=== PATIENT | female | born 1950 | race Caucasian/White ===

== ENCOUNTER → 2016-08-06 | Outpatient (CLI) | payer BC, OTHER ==
[~2016-08-06] MED LIST: ACYC1CAP8 PO; ALUMCHW6 PO; AMLO5TAB2 PO; CLOT10TR2 MT; DOCU100C31 PO; FLUT0.15 NAE; GABA1CAP4 PO; MAGIC1 PO; METO25TA56 PO; OXYC-57 PO; POSA1TAB PO; POTA10TA PO; PRT/20 PO; TPRSR/50 PO; TRMO2580 TOP; ULT50X PO; VALA1TAB31 PO; VNTHFA/IN INH; ZFR/8 PO
== END | disposition home or self-care (01) ==
LOC: C.PAPS 15:16
PROVIDERS: ATTEND Obstetrics & Gynecology
DX: Z01.419 Encounter for gynecological examination (general) (routine) without abnormal findings (principal)

== ENCOUNTER 2017-02-19 14:36 | Emergency (ER) | payer BC, OTHER ==
[~2017-02-19 14:36] MED LIST changes: -GABA1CAP4 PO; -OXYC-57 PO; -TPRSR/50 PO; -VALA1TAB31 PO
[2017-02-19 14:39] VITALS: TEMP 36.8; Ht 154.9 cm
[2017-02-19] MEDS ORDERED: TPRSR/50 PO (15:51)
[2017-02-19] MEDS ORDERED: GABA1CAP4 PO (15:51)
--- NOTE | 2017-02-19 15:58 | EMERGENCY ROOM VISIT NOTE ---
History Report prepared by Tushar: Jameson Fan Under the Supervision of: Dr. Niko Avalos M.D. First contact with patient: 15:37 Chief Complaint: RASH Stated Complaint: LEUKEMIA IN REMISSION/HAS SHINGLES, NEW RASH TODAY History of Present Illness The patient is a 66 year old female with a history of leukemia who presents to the Emergency Room with complaints of a persistent rash that started yesterday. She says that she recently had shingles on her groin and back, and was seen by her doctor at [facility], and was put on Valtrex 1000 mg 3 times per day. The patient states that today is her last dose of the Valtrex. She notes that yesterday, she started getting a new rash on her buttocks. She says that she does not feel well, and called her doctor at [facility], and was told to come here for evaluation. The patient denies any fevers, nausea, vomiting, abdominal pain, cough, or urinary symptoms. Source of History: patient, spouse/significant other Onset: Yesterday Position: buttock Quality: other (rash) Timing: other (persistent) Associated Symptoms: No fevers, No cough, No nausea, No vomiting, No abdominal pain, No urinary symptoms Note: Associated symptoms: Recently has been treated for shingles on her groin and back. Review of Systems See HPI for pertinent positives & negatives. A total of 10 systems reviewed and were otherwise negative. Past Medical & Surgical Medical Problems: (1) Asthma (2) Hematuria (3) Hypertension (4) Leukemia (5) Vomiting Old medical records were reviewed. Nurse's notes were reviewed and I agree with. Family History Patient reports no known family medical history. Social History Smoking Status: Never Smoker Drug Use: none Marital Status: Housing Status: lives with family Occupation Status: employed Current/Historical Medications Scheduled Gabapentin (Gabapentin), 300 MG PO TID Metoprolol Succinate (Metoprolol Succinate ER), 50 MG PO BID Pantoprazole (Protonix), 20 MG PO DAILY Valacyclovir Hcl (Valtrex), 1 GM PO TID Scheduled PRN Albuterol Hfa (Ventolin Hfa), 2 PUFFS INH QID PRN for Wheezing Docusate Sodium (Docusate Sodium), 1 CAP PO DAILY PRN for constipation Fluticasone Propionate (Nasal) (Flonase Allergy Relief), 1 SPRAY MANISHA DAILY PRN for CONGESTION Oxycodone/Acetaminophen 5MG/325MG (Percocet 5MG/325MG), 1 TABLET PO Q4H PRN for Pain Tramadol HCl (Tramadol HCl), 50 MG PO Q8 PRN for Pain Allergies Coded Allergies: Sulfa Antibiotics (Verified Allergy, Severe, RASH, 02/19/17) Physical Exam Vital Signs Date Time Temp Pulse Resp B/P (MAP) Pulse Ox O2 Delivery O2 Flow Rate FiO2 02/19/17 17:11 60 20 152/77 97 Room Air 02/19/17 14:39 36.8 65 18 147/78 95 Room Air Physical Exam General: Well developed well nourished non ill-appearing older female in no acute distress, breathing comfortably on room air. Normal speech HEENT: Normal cephalic atraumatic. Pupils are equal round and reactive to light. Extraocular movements are intact. Oropharynx is pink with moist mucous membranes. No swelling of the mouth lips or tongue. Neck: Supple with a midline trachea. No meningeal signs or stiffness, no JVD or bruits. No Stridor. Chest: Clear to auscultation bilaterally. No wheezes or rhonchi. No increased work of breathing. Heart: regular rate and rhythm. Abdomen: Soft nontender, nondistended without rebound guarding or rigidity. Extremities: No cyanosis clubbing or edema. No calf tenderness or assymetry Spine/Back. Non tender to palpation. No CVA tenderness Skin: Healing rash on left buttocks. Small superficial ulcer centrally, laterally on buttocks there are small areas that are red, scaly, and lacy. They alisia. No pustules. No lesions on abdomen or chest. Neurologic exam: Cranial nerves two through 12 are intact. Motor and sensation are intact and symmetrical throughout. Medical Decision & Procedures Laboratory Results 02/19/17 16:16 Red Blood Count 4.55, Mean Corpuscular Volume 90.1, Mean Corpuscular Hemoglobin 28.6, Mean Corpuscular Hemoglobin Concent 31.7, Mean Platelet Volume 8.4, Neutrophils (%) (Auto) 51.3, Lymphocytes (%) (Auto) 32.8, Monocytes (%) (Auto) 8.5, Eosinophils (%) (Auto) 6.4, Basophils (%) (Auto) 0.8, Neutrophils # (Auto) 3.13, Lymphocytes # (Auto) 2.00, Monocytes # (Auto) 0.52, Eosinophils # (Auto) 0.39, Basophils # (Auto) 0.05 02/19/17 16:16 Test 02/19/17 16:16 White Blood Count 6.10 K/uL (4.8-10.8) Red Blood Count 4.55 M/uL (4.2-5.4) Hemoglobin 13.0 g/dL (12.0-16.0) Hematocrit 41.0 % (37-47) Mean Corpuscular Volume 90.1 fL (80-100) Mean Corpuscular Hemoglobin 28.6 pg (25-34) Mean Corpuscular Hemoglobin Concent 31.7 g/dl (32-36) Platelet Count 251 K/uL (130-400) Mean Platelet Volume 8.4 fL (7.4-10.4) Neutrophils (%) (Auto) 51.3 % Lymphocytes (%) (Auto) 32.8 % Monocytes (%) (Auto) 8.5 % Eosinophils (%) (Auto) 6.4 % Basophils (%) (Auto) 0.8 % Neutrophils # (Auto) 3.13 K/uL (1.4-6.5) Lymphocytes # (Auto) 2.00 K/uL (1.2-3.4) Monocytes # (Auto) 0.52 K/uL (0.11-0.59) Eosinophils # (Auto) 0.39 K/uL (0-0.5) Basophils # (Auto) 0.05 K/uL (0-0.2) RDW Standard Deviation 53.3 fL (36.4-46.3) RDW Coefficient of Variation 16.2 % (11.5-14.5) Immature Granulocyte % (Auto) 0.2 % Immature Granulocyte # (Auto) 0.01 K/uL (0.00-0.02) Anion Gap 7.0 mmol/L (3-11) Estimated GFR () 49.5 Estimated GFR (Non- 42.7 BUN/Creatinine Ratio 15.7 (10-20) Calcium Level 9.3 mg/dl (8.5-10.1) Total Bilirubin 0.1 mg/dl (0.2-1) Direct Bilirubin < 0.1 mg/dl (0-0.2) Aspartate Amino Transf (AST/SGOT) 18 U/L (15-37) Alanine Aminotransferase (ALT/SGPT) 22 U/L (12-78) Alkaline Phosphatase 90 U/L (45-117) Total Protein 7.2 gm/dl (6.4-8.2) Albumin 3.3 gm/dl (3.4-5.0) Lipase 125 U/L (73-393) Laboratory studies as stated above per my review. ED Course 1539: Past medical records reviewed. The patient was evaluated in room B3B, and a complete history and physical examination were performed. 1705: I discussed the patient with Dr. Mateo Middleton oncology. 1714: Upon reevaluation, the patient is resting. I discussed the results and treatment plan with her. She verbalized agreement of the treatment plan. The patient was discharged home. Medical Decision Differentials include but are not limited to: shingles, rash, infection, complication from bone marrow transplant, hematologic problem. This patient comes in as described above. She was placed in room B3. She is here for treatment and evaluation of rash in her buttocks area. She's been treated for shingles and says is different rash. On exam, the shingles have more or less resolved. She has a small ulcer superficially in her buttocks which more looks like a pressure sore. There is no redness or cellulitis that the rash in question is lateral to that on the buttocks. It is red and Luz Elena and only small it may be more an irritation. It does not look like shingles and it is not vasculitic appearing. She is asymptomatic otherwise and has no fever. There is no petechiae. Was unremarkable she has no fever or white count. She isn't normal platelet function she is normal kidney and liver function and no electrolyte abnormalities. I did discuss the case with the [facility] oncologist and he will arrange for her to be seen by a team assembler down there this week. There are multiple things this rash could be including [id number] disease. At this point, there is nothing to suggest that she needs to be acutely hospitalized. She was encouraged to return if: she has fever or increasing pain, worsening symptoms, any new problems or concerns and follow up closely with [facility] and they will call her tomorrow. Medication Reconcilliation Current Medication List: was personally reviewed by me Blood Pressure Screening Patient's blood pressure: Elevated blood pressure Blood pressure disposition: Elevated BP felt to be situational Consults Time Called: 1700 Consulting Physician: Dr. Mateo Middleton oncology Returned Call: 1705 I discussed the patient with Dr. Mateo Middleton oncology. Impression Primary Impression: Rash Scribe Attestation The scribe's documentation has been prepared under my direction and personally reviewed by me in its entirety. I confirm that the note above accurately reflects all work, treatment, procedures, and medical decision making performed by me. Departure Information Dispostion Home / Self-Care Referrals Sherry Blanc M.D. (PCP) Patient Instructions My [facility] Additional Instructions Rest Follow-up with [facility], they will call you tommorrow and arrange close follow- up with Dermatology Return if: fever, worsening of symptoms, increasing pain or problems, any new concerns
[2017-02-19] MEDS ORDERED: OXYC-57 PO (15:59)
[2017-02-19] MEDS ORDERED: VALA1TAB31 PO (15:59)
[2017-02-19 16:32] LABS: BASO % 0.8 %; BASO ABS # 0.05 K/uL (0-0.2); COMPLETE YES; EOS % 6.4 %; IG% 0.2 %; LYMPH % 32.8 %; MEAN CELL VOLUME 90.1 fL (80-100); MEAN CORPUSCULAR HEMOGLOBIN 28.6 pg (25-34); MEAN CORPUSCULAR HGB CONC 31.7 g/dl (32-36); MEAN PLATELET VOLUME 8.4 fL (7.4-10.4); MONO % 8.5 %; NEUT % 51.3 %; PLATELET COUNT 251 K/uL (130-400); RED BLOOD COUNT 4.55 M/uL (4.2-5.4)
[2017-02-19 16:50] LABS: ALT/SGPT 22 U/L (12-78); BLOOD UREA NITROGEN 20 mg/dl (7-18); BUN/CREATININE RATIO 15.7 (10-20); CALCIUM 9.3 mg/dl (8.5-10.1); CARBON DIOXIDE 27 mmol/L (21-32); CHLORIDE 106 mmol/L (98-107); GLUCOSE 92 mg/dl (70-99); POTASSIUM 4.1 mmol/L (3.5-5.1); SODIUM 140 mmol/L (136-145)
[2017-02-19 16:53] LABS: ALKALINE PHOSPHATASE 90 U/L (45-117); AST/SGOT 18 U/L (15-37)
[2017-02-19 17:11] VITALS: BP 152/77; PULSE 60; O2SAT 97
== END 2017-02-19 17:44 | disposition home or self-care (01) ==
LOC: C.EDB 14:37
DX: R21 Rash and other nonspecific skin eruption (principal); J45.909 Unspecified asthma, uncomplicated; I10 Essential (primary) hypertension; Z85.6 Personal history of leukemia; Z79.899 Other long term (current) drug therapy

== ENCOUNTER → 2017-03-05 | Outpatient (CLI) | payer BC ==
[~2017-03-05] MED LIST changes: -ACYC1CAP8 PO; -ALUMCHW6 PO; -AMLO5TAB2 PO; -CLOT10TR2 MT; +GABA1CAP4 PO; -MAGIC1 PO; -METO25TA56 PO; +OXYC-57 PO; -POSA1TAB PO; -POTA10TA PO; +TPRSR/50 PO; -TRMO2580 TOP; +VALA1TAB31 PO; -ZFR/8 PO
== END | disposition home or self-care (01) ==
LOC: C.LABSPEC 13:58
PROVIDERS: ATTEND Obstetrics & Gynecology
DX: N76.2 Acute vulvitis (principal)

== ENCOUNTER → 2017-07-19 | Outpatient (CLI) | payer BC ==
--- NOTE | 2017-07-19 11:03 | DIAGNOSTIC IMAGING REPORT ---
ABDOMINAL ULTRASOUND COMPLETE HISTORY: Right upper quadrant abdominal pain.. COMPARISON: Abdominal ultrasound 02/12/2006 and abdomen and pelvis CT 11/21/2005. FINDINGS: Pancreas: The pancreatic tail is obscured by overlying bowel gas. The remaining portions of the pancreas are within normal limits. Liver: The liver is echogenic consistent with fatty change. There is a 2.3 x 2.1 0.9 cm hypoechoic area at the left hepatic lobe. This favors focal fatty sparing. There is vascular flow seen through this area. Gallbladder: The gallbladder is surgically absent. CBD: 6 mm. Kidneys: No hydronephrosis. The right measures 10.3 cm and the left measures 11.0 cm. Spleen: 10.3 cm. No splenic masses. Aorta: Proximal and mid abdominal aorta are normal in caliber. The distal aorta is obscured by overlying bowel gas. IVC: Patent. IMPRESSION: 1. Cholecystectomy. 2. Hepatic steatosis. A 2.9 cm hypoechoic area within the left hepatic lobe anteriorly. This favors focal fatty sparing. A hepatic lesion could also have a similar appearance but is considered less likely. Follow-up abdominal ultrasound in 3 months is recommended for further evaluation. Electronically signed by: Jovon Ramirez M.D. 07/19/2017 11:02 AM Dictated Date/Time: 07/19/2017 10:54 AM
== END | disposition home or self-care (01) ==
LOC: C.ULTR 10:01
PROVIDERS: ATTEND Internal Medicine Hematology & Oncology
DX: C92.51 Acute myelomonocytic leukemia, in remission (principal)

== ENCOUNTER → 2017-10-07 | Outpatient (CLI) | payer BC ==
[~2017-10-07] MED LIST changes: +GABA-1219 PO; -GABA1CAP4 PO
--- NOTE | 2017-10-07 20:54 | DIAGNOSTIC IMAGING REPORT ---
MRCP HISTORY: Right upper quadrant pain. TECHNIQUE: MRCP of the abdomen was performed according to standard departmental protocol without the use of intravenous contrast. COMPARISON STUDY: Abdominal ultrasound 07/19/2017. Abdomen and pelvis CT 11/21/2005. FINDINGS: Normal caliber common bile duct measuring 6 mm. No filling defects within the common bile duct. No intrahepatic bile duct dilatation. There may be a mild focal stricture of the distal main pancreatic duct as well as of the proximal to mid main pancreatic duct at the pancreatic tail. There is a T1 and centimeters slightly T2 hyperintense focus seen within the left hepatic lobe anteriorly. This is indeterminate but stable compared to the recent abdominal ultrasound. The spleen, adrenal glands, left kidney are unremarkable. There are 2 small T2 hyperintense lesions within the lower pole the right kidney with the largest measuring 8 mm. These likely represent small cysts. IMPRESSION: 1. Normal caliber common bile duct. No filling defects within the common bile duct. 2. Mild focal stricture seen within the proximal to mid and distal main pancreatic duct. The remaining portions of the main pancreatic duct are normal in caliber. 3. Cholecystectomy. 4. A 2.9 cm slightly T2 hyperintense lesion within the left hepatic lobe. This is indeterminate. Consider follow-up nonemergent dedicated liver MRI for further evaluation. Electronically signed by: Jovon Ramirez M.D. 10/07/2017 8:52 PM Dictated Date/Time: 10/07/2017 8:41 PM
== END | disposition home or self-care (01) ==
LOC: C.MRI 19:26
PROVIDERS: ATTEND Internal Medicine Gastroenterology
DX: R10.11 Right upper quadrant pain (principal); K76.9 Liver disease, unspecified; Z90.49 Acquired absence of other specified parts of digestive tract

== ENCOUNTER → 2017-10-15 | Outpatient (CLI) | payer BC ==
--- NOTE | 2017-10-15 12:06 | DIAGNOSTIC IMAGING REPORT ---
ULTRASOUND ABDOMEN COMPLETE CLINICAL HISTORY: AML. COMPARISON STUDY: Abdominal CT dated 11/21/2005. Abdominal ultrasound dated 07/19/2017. TECHNIQUE: Real-time, grayscale, and color flow sonography of the abdomen was performed. Images are reviewed in the transverse and longitudinal planes. FINDINGS: Liver: The liver is enlarged and demonstrates heterogeneously increased echotexture consistent with hepatic steatosis. There is no intrahepatic biliary ductal dilatation. The main portal vein is patent. A 2.3 cm hypoechoic structure in the anterior left lobe is similar to previous. Gallbladder: The gallbladder is surgically absent. The common bile duct measures up to 0.6 cm in diameter. Pancreas: Visualized portions of the pancreatic head and body are normal in appearance. Spleen: The spleen is normal in size and echotexture, measuring 9.0 cm in length. Kidneys: The kidneys are normal in size and echotexture. There is no hydronephrosis. The right kidney measures 9.2 cm in length and the left kidney measures 10.8 cm in length. No shadowing calculi are identified. Abdominal vasculature: Abdominal aorta and IVC were not visualized due to overlying bowel gas. Ascites: None. IMPRESSION: 1. There is evidence of hepatic steatosis. 2. A 2.5 cm hypoechoic focus in the left lobe is unchanged and remains nonspecific, possibly representing fatty sparing. This may have also been present dating back to 2005. If definitive characterization is desired then MRI of the liver would be required. 3. Status post cholecystectomy. Electronically signed by: Wesly Inman M.D. 10/15/2017 12:05 PM Dictated Date/Time: 10/15/2017 12:01 PM
== END | disposition home or self-care (01) ==
LOC: C.ULTR 11:37
PROVIDERS: ATTEND Internal Medicine Hematology & Oncology
DX: C92.51 Acute myelomonocytic leukemia, in remission (principal)

== ENCOUNTER 2019-03-05 21:02 | Observation (INO) ==
[2019-03-05] MEDS ORDERED: ONDANSETRON INJ 2 MG/ML 2 ML VIAL IV STA (21:17)
[2019-03-05] MEDS ORDERED: SODIUM CHLORIDE 0.9% 1000ML 1,000 ML IV ONE (21:17)
[2019-03-05] MEDS ORDERED: KETOROLAC TROMETHAMINE 15 MG/ML VIAL IV STA (21:17)
[2019-03-05] MEDS: HYDROmorphone INJ 0.5 MG/0.5 ML SYR IV PRN (21:57)
[2019-03-05 22:04] LABS: Basophils # (auto) 0.03 K/uL (0-0.2); Basophils % (auto) 0.1 %; Eosinophils # (auto) 0.01 K/uL (0-0.5); Hematocrit (blood only) 48.2 % (37-47); Hemoglobin 16.4 g/dL (12.0-16.0); Immature Granulocytes # (auto) 0.09 K/uL (0.00-0.02); Immature Granulocytes % (auto) 0.4 %; Lymphocytes # (auto) 1.51 K/uL (1.2-3.4); Lymphocytes % (auto) 7.2 %; Mean Corpuscular Hemoglobin 31.3 pg (25-34); Monocytes # (auto) 1.02 K/uL (0.11-0.59); Monocytes % (auto) 4.9 %; Neutrophils # (auto) 18.22 K/uL (1.4-6.5); Neutrophils % (auto) 87.4 %; Platelet Count 304 K/uL (130-400); RDW Coefficient of Variation 14.4 % (11.5-14.5); RDW Standard Deviation 48.2 fL (36.4-46.3); Red Blood Count 5.24 M/uL (4.2-5.4); White Blood Count 20.88 K/uL (4.8-10.8)
[2019-03-05 22:22] LABS: Albumin Level 4.1 gm/dl (3.4-5.0); BUN Creatinine Ratio 14.6 (10-20); Calcium 9.6 mg/dl (8.5-10.1); Est GFR (African American) 47.1; Est GFR (Non-African American) 40.6; Potassium 3.6 mmol/L (3.5-5.1)
[2019-03-05 22:25] LABS: Albumin Globulin Ratio 1.1 (0.9-2); Bilirubin,Total 0.5 mg/dl (0.2-1); Globulin 3.9 gm/dl (2.5-4.0)
[2019-03-05] MEDS ORDERED: IOVERSOL 100ml IV PRN (23:23)
[2019-03-06 00:30] LABS: Appearance Urine Clear (Clear); Bilirubin Urine Negative (Negative); Blood Urine Negative (Negative); Color Urine Yellow; Glucose Urine UA Negative (Negative); Ketones Urine Negative (Negative); Leukocyte Esterase Urine Negative (Negative); Nitrite Urine Negative (Negative); Protein Urine Negative (Negative); Urobilinogen Urine Negative (Negative); pH Urine 5.5 (4.5-7.5)
[2019-03-06] MEDS: HYDROmorphone INJ 0.5 MG/0.5 ML SYR IV PRN (00:33)
[2019-03-06] MEDS ORDERED: METOCLOPRAMIDE HCL INJ 5 MG/ML 2 ML VIAL IV STA (00:36)
[2019-03-06] MEDS ORDERED: MAGNESIUM CITRATE 296 ML/BTL PO SCH (00:45)
--- NOTE | 2019-03-06 01:09 | Emergency Department Note ---
History of Present Illness General Chief complaint: Constipation Stated complaint: CONSTIPATED, BLOCKAGE Time Seen by Provider: 03/05/19 21:12 Source: patient, family, RN notes reviewed and old records reviewed Mode of arrival: ambulatory Limitations: no limitations History of Present Illness Provider complaint: constipation Onset (ago): day(s) 1 Location: abdomen Radiation: back Severity: moderate Pain Consistency: + colicky Maximum Pain Intensity: 5 Current Pain Intensity: 5 Quality: + aching Relieved By: + rest Exacerbated By: + none Associated symptoms: + denies other symptoms Treatments prior to arrival: none This is a 68-year-old female who presents emergency department complaining of constipation. Patient reports she has not been able to go the bathroom today. She has given herself an enema including a fleets enema. She also takes a stool softener and has been taking MiraLAX today without success. She is complaining of rectal pain. She reports she also has a history of hemorrhoids. She reports she has previously had a colonoscopy. Home Medications Home Medications Medication Instructions Recorded Confirmed Type albuterol sulfate HFA 90 1 puffs INH Q6H PRN 04/01/18 03/05/19 History mcg/actuation aerosol inhaler atorvastatin 10 mg tablet 10 mg PO HS 04/01/18 03/05/19 History docusate sodium 50 mg capsule 50 mg PO DAILY 04/01/18 03/05/19 History fluticasone propionate 50 1 sprays INTNAS DAILY 04/01/18 03/05/19 History mcg/actuation nasal spray,suspension losartan 25 mg tablet 25 mg PO DAILY tab 04/01/18 03/05/19 History metoprolol succinate ER 50 mg 50 mg PO BID 04/01/18 03/05/19 History tablet,extended release 24 hr pantoprazole 20 mg tablet,delayed 20 mg PO DAILY 04/01/18 03/05/19 History release estradiol 10 mcg vaginal tablet 10 mcg VAGINAL 2XWK #8 tab 02/25/19 03/05/19 History ibuprofen 200 mg tablet 200 - 400 mg PO DIRECTED PRN 02/25/19 03/05/19 History tab mycophenolate mofetil 500 mg tablet 500 mg PO BID tab 02/25/19 03/05/19 History ondansetron HCl 4 mg tablet 4 mg PO DIRECTED PRN tab 02/25/19 03/05/19 History tacrolimus 0.1 % topical ointment 1 applic TOPICAL DIRECTED PRN 02/25/19 03/05/19 History #1 gm acyclovir 400 mg PO BID 03/05/19 03/05/19 History clobetasol 1 appln TOP BID 03/05/19 03/05/19 History hydroxyzine HCl 25 mg PO QID PRN 03/05/19 03/05/19 History Allergies Allergy/AdvReac Type Severity Reaction Status Date / Time Sulfa (Sulfonamide Allergy Severe RASH Verified 03/05/19 21:42 Antibiotics) lisinopril AdvReac Mild coughing Verified 03/05/19 21:42 Past Med/Surg History Medical History Asthma (Chronic) Hypertension (Chronic) Leukemia (Chronic) GERD (gastroesophageal reflux disease) Social History Preferred Language: Slovak Communication Ability: Effective Director Of Outreach Required: No Beliefs That Will Affect Care: None Current Living Situation: Spouse Feels Safe at Home: Yes Smoking Status: Never smoker Hx Alcohol Use: Yes Hx Substance Use: No Review of Systems A total of 10 systems reviewed and were otherwise negative Physical Exam Vital Signs Vital Signs - 24 hr 03/05/19 21:04 03/05/19 22:39 03/05/19 22:41 Temperature 36.7 C 36.5 C Temperature Source Oral Oral Sepsis Recent Fever Within 48 Hours No Sepsis New/Unexplained Change in Mental Status No Sepsis Action Taken by Nursing No Action Required Pulse Rate 81 63 Pulse Rate [Right Radial] 61 Pulse Rate from SpO2 Sensor Pulse Rhythm [Right Radial] Regular Pulse Strength [Right Radial] Normal Respiratory Rate 18 18 Respiratory Effort / Characteristics Non-Labored Respiratory Depth Normal Respiratory Pattern Regular Blood Pressure 185/88 H Blood Pressure [Right Arm] 196/76 H Blood Pressure Mean 120 Blood Pressure Mean [Right Arm] 116 Blood Pressure Position [Right Arm] Lying Pulse Oximetry 98 99 99 Oxygen Delivery Method Nasal Cannula Nasal Cannula Oxygen Flow Rate 2 2 03/05/19 23:04 03/05/19 23:10 03/05/19 23:20 Temperature Temperature Source Sepsis Recent Fever Within 48 Hours Sepsis New/Unexplained Change in Mental Status Sepsis Action Taken by Nursing Pulse Rate 66 59 L Pulse Rate [Right Radial] Pulse Rate from SpO2 Sensor 66 62 60 Pulse Rhythm [Right Radial] Pulse Strength [Right Radial] Respiratory Rate 20 18 Respiratory Effort / Characteristics Respiratory Depth Respiratory Pattern Blood Pressure 177/92 H Blood Pressure [Right Arm] Blood Pressure Mean 120 Blood Pressure Mean [Right Arm] Blood Pressure Position [Right Arm] Pulse Oximetry 91 94 91 Oxygen Delivery Method Oxygen Flow Rate 2 2 03/05/19 23:34 03/05/19 23:40 03/05/19 23:50 Temperature Temperature Source Sepsis Recent Fever Within 48 Hours Sepsis New/Unexplained Change in Mental Status Sepsis Action Taken by Nursing Pulse Rate 69 75 73 Pulse Rate [Right Radial] Pulse Rate from SpO2 Sensor 69 76 74 Pulse Rhythm [Right Radial] Pulse Strength [Right Radial] Respiratory Rate 18 20 20 Respiratory Effort / Characteristics Respiratory Depth Respiratory Pattern Blood Pressure 178/77 H Blood Pressure [Right Arm] Blood Pressure Mean 110 Blood Pressure Mean [Right Arm] Blood Pressure Position [Right Arm] Pulse Oximetry 95 95 95 Oxygen Delivery Method Nasal Cannula Nasal Cannula Oxygen Flow Rate 2 2 03/06/19 00:00 03/06/19 00:10 03/06/19 00:22 Temperature Temperature Source Sepsis Recent Fever Within 48 Hours Sepsis New/Unexplained Change in Mental Status Sepsis Action Taken by Nursing Pulse Rate 74 74 74 Pulse Rate [Right Radial] Pulse Rate from SpO2 Sensor 74 74 73 Pulse Rhythm [Right Radial] Pulse Strength [Right Radial] Respiratory Rate 19 19 15 Respiratory Effort / Characteristics Respiratory Depth Respiratory Pattern Blood Pressure 164/80 H Blood Pressure [Right Arm] Blood Pressure Mean 108 Blood Pressure Mean [Right Arm] Blood Pressure Position [Right Arm] Pulse Oximetry 94 95 95 Oxygen Delivery Method Room Air Room Air Room Air Oxygen Flow Rate 03/06/19 00:30 03/06/19 00:40 03/06/19 00:50 Temperature Temperature Source Sepsis Recent Fever Within 48 Hours Sepsis New/Unexplained Change in Mental Status Sepsis Action Taken by Nursing Pulse Rate 71 71 81 Pulse Rate [Right Radial] Pulse Rate from SpO2 Sensor 72 71 80 Pulse Rhythm [Right Radial] Pulse Strength [Right Radial] Respiratory Rate 18 19 13 Respiratory Effort / Characteristics Respiratory Depth Respiratory Pattern Blood Pressure Blood Pressure [Right Arm] Blood Pressure Mean Blood Pressure Mean [Right Arm] Blood Pressure Position [Right Arm] Pulse Oximetry 95 92 95 Oxygen Delivery Method Room Air Room Air Room Air Oxygen Flow Rate 03/06/19 01:00 Temperature Temperature Source Sepsis Recent Fever Within 48 Hours Sepsis New/Unexplained Change in Mental Status Sepsis Action Taken by Nursing Pulse Rate 71 Pulse Rate [Right Radial] Pulse Rate from SpO2 Sensor Pulse Rhythm [Right Radial] Pulse Strength [Right Radial] Respiratory Rate Respiratory Effort / Characteristics Respiratory Depth Respiratory Pattern Blood Pressure Blood Pressure [Right Arm] Blood Pressure Mean Blood Pressure Mean [Right Arm] Blood Pressure Position [Right Arm] Pulse Oximetry Oxygen Delivery Method Oxygen Flow Rate GENERAL: Patient is a healthy-appearing well-nourished female HEAD: Normocephalic atraumatic EYES: Ocular movements intact pupils equal and react to light OROPHARYNX mucous membranes are moist no exudates present no erythema or edema present NECK: Supple no nuchal rigidity CHEST: Good equal expansion LUNGS: Clear and equal to auscultation CARDIAC: Normal S1 and S2 ABDOMEN: Soft nontender no guarding Rectum: Stool noted in rectal vault, no masses or blood BACK: No CVA tenderness EXTREMITIES: No pain upon palpation normal muscle strength in all groups no clubbing cyanosis or edema NEURO: Patient is following commands is answering questions appropriately. Alert and oriented x3 Cranial Nerves 2-12 grossly intact Procedures Rectal Disimpaction Time out performed rectal disimpaction: Yes Indication: fecal impaction Procedural Sedation: No Sedation/Analgesia: opioids Technique: manual disimpaction with gloved finger Result: significant stool output Patient Tolerated Procedure: well Complications: none Course Administered Medications Discontinued Medications Acetaminophen (Tylenol) 650 mg PO Q4H PRN PRN Reason: pain/fever Stop: 04/05/19 03:43 Last Admin: 03/07/19 05:01 Dose: 650 mg Documented by: [id number] Admin: 03/06/19 22:34 Dose: 650 mg Documented by: [id number] Admin: 03/06/19 15:48 Dose: 650 mg Documented by: [id number] Admin: 03/06/19 10:38 Dose: 650 mg Documented by: [id number] Acyclovir (Zovirax) 400 mg PO BID MALIHA; Protocol Stop: 04/05/19 08:59 Last Admin: 03/07/19 08:29 Dose: 400 mg Documented by: [id number] Admin: 03/06/19 20:46 Dose: 400 mg Documented by: [id number] Admin: 03/06/19 08:18 Dose: 400 mg Documented by: [id number] Acyclovir (Zovirax) 400 mg PO ONE ONE Stop: 03/06/19 03:12 Last Admin: 03/06/19 04:03 Dose: 400 mg Documented by: [id number] Atorvastatin Calcium (Lipitor) 10 mg PO HS MALIHA Stop: 04/05/19 20:59 Last Admin: 03/06/19 20:50 Dose: 10 mg Documented by: [id number] Clobetasol Propionate (Clobetasol Propionate Oint) 1 appln EXT BID MALIHA Stop: 04/05/19 08:59 Last Admin: 03/07/19 08:29 Dose: 1 appln Documented by: [id number] Admin: 03/06/19 20:48 Dose: 1 appln Documented by: [id number] Admin: 03/06/19 08:13 Dose: 1 appln Documented by: [id number] Dicyclomine HCl (Bentyl) 10 mg PO NOW ONE Stop: 03/06/19 14:06 Last Admin: 03/06/19 14:28 Dose: 10 mg Documented by: [id number] Docusate Sodium (Colace) 50 mg PO DAILY MALIHA Stop: 04/05/19 08:59 Last Admin: 03/07/19 08:28 Dose: 50 mg Documented by: [id number] Admin: 03/06/19 08:18 Dose: 50 mg Documented by: [id number] Hydromorphone HCl (Dilaudid) 0.5 mg IV Q15M PRN PRN Reason: Pain Stop: 03/19/19 21:16 Last Admin: 03/06/19 00:33 Dose: 0.5 mg Documented by: [id number] Admin: 03/05/19 21:57 Dose: 0.5 mg Documented by: [id number] Sodium Chloride (Nss 1000ml) 1,000 mls @ 999 mls/hr IV .Q1H1M ONE Stop: 03/05/19 22:17 Last Infusion: 03/05/19 22:59 Dose: 0 mls/hr Documented by: [id number] Admin: 03/05/19 21:58 Dose: 999 mls/hr Documented by: [id number] Sodium Chloride (Nss 1000ml) 1,000 mls @ 125 mls/hr IV .Q8H MALIHA Stop: 04/05/19 03:43 Last Admin: 03/07/19 04:59 Dose: 125 mls/hr Documented by: [id number] Infusion: 03/07/19 04:54 Dose: 125 mls/hr Documented by: [id number] Admin: 03/06/19 20:54 Dose: 125 mls/hr Documented by: [id number] Infusion: 03/06/19 19:45 Dose: 125 mls/hr Documented by: [id number] Admin: 03/06/19 11:45 Dose: 125 mls/hr Documented by: [id number] Infusion: 03/06/19 11:45 Dose: 125 mls/hr Documented by: [id number] Admin: 03/06/19 03:59 Dose: 125 mls/hr Documented by: [id number] Ioversol (Optiray 320 100ml) 100 ml IV ONCE PRN PRN Reason: Interaction Checking Stop: 03/09/19 23:22 Last Admin: 03/05/19 23:24 Dose: 92 ml Documented by: [id number] Ketorolac Tromethamine (Toradol) 15 mg IV NOW STA Stop: 03/05/19 21:18 Last Admin: 03/05/19 21:57 Dose: 15 mg Documented by: [id number] Lactulose (Chronulac) 20 gm PO TID MALIHA Stop: 04/05/19 08:59 Last Admin: 03/07/19 08:28 Dose: 20 gm Documented by: [id number] Admin: 03/06/19 20:50 Dose: 20 gm Documented by: [id number] Admin: 03/06/19 14:28 Dose: 20 gm Documented by: [id number] Admin: 03/06/19 08:17 Dose: 20 gm Documented by: [id number] Losartan Potassium (Cozaar) 25 mg PO DAILY MALIHA Stop: 04/05/19 08:59 Last Admin: 03/07/19 08:28 Dose: 25 mg Documented by: [id number] Admin: 03/06/19 08:18 Dose: 25 mg Documented by: [id number] Magnesium Citrate (Citrate) 148 ml PO TODAY@ MALIHA Stop: 04/05/19 00:44 Last Admin: 03/06/19 00:46 Dose: 148 ml Documented by: [id number] Metoclopramide HCl (Reglan) 10 mg IV NOW STA Stop: 03/06/19 00:37 Last Admin: 03/06/19 00:46 Dose: 10 mg Documented by: [id number] Metoprolol Succinate (Toprol Xl) 50 mg PO BID MALIHA Stop: 04/05/19 08:59 Last Admin: 03/07/19 08:27 Dose: 50 mg Documented by: [id number] Admin: 03/06/19 20:50 Dose: 50 mg Documented by: [id number] Admin: 03/06/19 08:18 Dose: 50 mg Documented by: [id number] Metoprolol Succinate (Toprol Xl) 50 mg PO NOW STA Stop: 03/06/19 03:12 Last Admin: 03/06/19 04:07 Dose: 50 mg Documented by: [id number] Mineral Oil (Fleet Oil Enema) 133 ml UT NOW STA Stop: 03/06/19 01:11 Last Admin: 03/06/19 01:25 Dose: 133 ml Documented by: [id number] Mycophenolate Mofetil (Cellcept) 500 mg PO BID MALIHA Stop: 04/05/19 08:59 Last Admin: 03/07/19 08:28 Dose: 500 mg Documented by: [id number] Admin: 03/06/19 20:57 Dose: 500 mg Documented by: [id number] Admin: 03/06/19 08:17 Dose: 500 mg Documented by: [id number] Mycophenolate Mofetil (Cellcept) 500 mg PO NOW STA Stop: 03/06/19 03:12 Last Admin: 03/06/19 04:03 Dose: 500 mg Documented by: [id number] Ondansetron HCl (Zofran) 4 mg IV NOW STA Stop: 03/05/19 21:18 Last Admin: 03/05/19 21:57 Dose: 4 mg Documented by: [id number] Pantoprazole Sodium (Protonix) 40 mg PO DAILY MALIHA Stop: 04/05/19 08:59 Last Admin: 03/07/19 08:27 Dose: 40 mg Documented by: [id number] Admin: 03/06/19 08:18 Dose: 40 mg Documented by: [id number] Polyethylene Glycol (Miralax Powder Packet) 34 gm PO DAILY MALIHA Stop: 04/05/19 08:59 Last Admin: 03/07/19 08:29 Dose: 34 gm Documented by: [id number] Admin: 03/06/19 08:18 Dose: 34 gm Documented by: [id number] Medical Decision Making Medical Records Attestation: I reviewed the patient's medical records. Home Medications Current Medication List: was personally reviewed by me Laboratory Data Attestation: I reviewed the patient's lab results. Result diagrams: 03/06/19 08:59 03/06/19 08:59 Lab Results 03/05/19 03/05/19 03/06/19 Range/Units 21:50 21:50 00:20 WBC 20.88 H (4.8-10.8) K/uL RBC 5.24 (4.2-5.4) M/uL Hgb 16.4 H (12.0-16.0) g/dL Hct 48.2 H (37-47) % MCV 92.0 (80-100) fL MCH 31.3 (25-34) pg MCHC 34.0 (32-36) g/dL RDW Std Deviation 48.2 H (36.4-46.3) fL RDW Coeff of Miguel 14.4 (11.5-14.5) % Plt Count 304 (130-400) K/uL MPV 9.0 (7.4-10.4) fL Immature Gran % (Auto) 0.4 % Neut % (Auto) 87.4 % Lymph % (Auto) 7.2 % [place] % (Auto) 4.9 % Eos % (Auto) 0.0 % Baso % (Auto) 0.1 % Immature Gran # (Auto) 0.09 H (0.00-0.02) K/uL Neut # (Auto) 18.22 H (1.4-6.5) K/uL Lymph # (Auto) 1.51 (1.2-3.4) K/uL [place] # (Auto) 1.02 H (0.11-0.59) K/uL Eos # (Auto) 0.01 (0-0.5) K/uL Baso # (Auto) 0.03 (0-0.2) K/uL Sodium 138 (136-145) mmol/L Potassium 3.6 (3.5-5.1) mmol/L Chloride 104 (98-107) mmol/L Carbon Dioxide 24 (21-32) mmol/L Anion Gap 10.0 (3-11) BUN 20 H (7-18) mg/dl Creatinine 1.34 H (0.6-1.2) mg/dl Est Cr Clr Drug Dosing 40.0 ml/min Est GFR ( Amer) 47.1 Est GFR (Non-Af Amer) 40.6 BUN/Creatinine Ratio 14.6 (10-20) Glucose 147 H (70-99) mg/dl Calcium 9.6 (8.5-10.1) mg/dl Total Bilirubin 0.5 (0.2-1) mg/dl AST 14 L (15-37) U/L ALT 21 (12-78) U/L Alkaline Phosphatase 117 (45-117) U/L Total Protein 8.0 (6.4-8.2) gm/dl Albumin 4.1 (3.4-5.0) gm/dl Globulin 3.9 (2.5-4.0) gm/dl Albumin/Globulin Ratio 1.1 (0.9-2) Lipase 114 (73-393) U/L Urine Color Yellow Urine Appearance Clear (Clear) Urine pH 5.5 (4.5-7.5) Ur Specific [place] 1.040 H (1.000-1.030) Urine Protein Negative (Negative) Urine Glucose (UA) Negative (Negative) Urine Ketones Negative (Negative) Urine Blood Negative (Negative) Urine Nitrite Negative (Negative) Urine Bilirubin Negative (Negative) Urine Urobilinogen Negative (Negative) Ur Leukocyte Esterase Negative (Negative) Imaging Data Radiologist's Impression: CT abdomen pelvis with contrast: Moderate stool distends the rectum. Recommend correlation with fecal impaction. No perirectal wall thickening is seen however there is a small to moderate amount of fluid in the presacral space and fat stranding in the perirectal space. Focal amount of edema is located in the anterior perirectal space series 2 image 75 findings could represent infectious colitis or sterile coral colitis evaluation for malignancy is limited due to the presence of stool. Hepatic steatosis. Status post cholecystectomy. No significant biliary dilation. Subcentimeter nonenhancing cyst in the inferior right kidney is likely benign. Faint high density within the bilateral renal pelvis probably represents early excretion of IV contrast. The possibility of a small stone in the right renal pelvis measuring 3 mm cannot be entirely excluded. Recommend correlation with hematuria. Small fat-containing right inguinal hernia. Appendix is not identified. No bowel obstruction no free air. Blood Pressure Blood Pressure Disposition: elevated BP felt to be situational MDM Narrative This is a 68-year-old female who presents emergency department complaining of unable to have a bowel movement for 4 days. Patient has tried multiple enemas a t home with no success. I disimpacted the patient myself. She was sent for CAT scan the abdomen pelvis which was concerning for a large amount of stool in the rectum. Based on this the patient was again disimpacted by me. Patient received multiple enemas in the emergency department. She began to have bowel movements after receiving magnesium [facility]. Patient also received Dilaudid and Reglan. Repeat examination revealed improvement the patient's symptoms. Based on the fact that the patient has stero coral colitis I did discuss the case with the hospitalist service who agreed to admit the patient. Impression & Plan Fecal impaction in rectum Discharge Plan Visit Data *Final* Discharge Date/Time: 03/06/19 03:30 Chief Complaint: Constipation Stated Complaint: CONSTIPATED, BLOCKAGE ED Provider: Mason Odom Discharge Problem: Fecal impaction in rectum Patient Disposition: Admitted As Inpatient Condition: Good Discharge Instructions Interventions: ED Discharge Assessment Last Done: 03/06/19 03:30
[2019-03-06] MEDS ORDERED: MINERAL OIL ENEMA 133 ML BTL PR STA (01:10)
[2019-03-06] MEDS ORDERED: ONDANSETRON 4 MG TAB PO PRN (02:55)
[2019-03-06] MEDS ORDERED: ALBUTEROL HFA 8 GM INHALER INH PRN (02:55)
[2019-03-06] MEDS ORDERED: MYCOPHENOLATE MOFETIL 250 MG CAP PO STA (03:11)
[2019-03-06] MEDS ORDERED: ACYCLOVIR 400 MG TAB PO ONE (03:11)
--- NOTE | 2019-03-06 03:11 | History & Physical Report ---
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 -Cont acyclovir and cellcept Lichen sclerosus of genitalia -Continue home regimen HTN -Cont losartan and metoprolol Asthma -Well controlled, prn albuterol inh DLD -Cont atorvastatin GERD -Continue protonix Code: full Dispo: Med/surg DVTP: SCDs (2) 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: (3) History of stem cell transplant: (4) Asthma: (5) Hypertension: (6) GERD (gastroesophageal reflux disease): History of Present Illness Chief Complaint: Constipation Primary Care Provider: Sherry Blanc MD Patient is a pleasant 68yo F PMH 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 She notes that she typically has BMs every 2 days, and has not had one for 5-6 days now. Typically uses colace daily. Was not concerned about not having BM until today when she developed acute abdominal pain from the constipation. She then took a suppository, fleet enema, and liquid suppository in addition to miralax, which did not help relieve symptoms. In the ER, she was given magnesium citrate, soap suds enema, mineral oil enema, milk and molasses enema with minimal stool output. These measures did help to alleviate some symptoms, but she did not feel comfortable going home with the amount of stool still retained. She reports a h/o hemorrhoids but denies any [place] bleeding at this time. Initial labs were significant for a leukocytosis of 20,000 and a Creatinine of 1.3, which is her baseline. UA was negative and CT abdo statrad read was significant for moderate stool burden and ?stercolitis. Allergies Allergy/AdvReac Type Severity Reaction Status Date / Time Sulfa (Sulfonamide Allergy Severe RASH Verified 03/05/19 21:42 Antibiotics) lisinopril AdvReac Mild coughing Verified 03/05/19 21:42 Home Medications Home Medications Medication Instructions Recorded Confirmed Type albuterol sulfate HFA 90 1 puffs INH Q6H PRN 04/01/18 03/05/19 History mcg/actuation aerosol inhaler atorvastatin 10 mg tablet 10 mg PO HS 04/01/18 03/05/19 History docusate sodium 50 mg capsule 50 mg PO DAILY 04/01/18 03/05/19 History fluticasone propionate 50 1 sprays INTNAS DAILY 04/01/18 03/05/19 History mcg/actuation nasal spray,suspension losartan 25 mg tablet 25 mg PO DAILY tab 04/01/18 03/05/19 History metoprolol succinate ER 50 mg 50 mg PO BID 04/01/18 03/05/19 History tablet,extended release 24 hr pantoprazole 20 mg tablet,delayed 20 mg PO DAILY 04/01/18 03/05/19 History release estradiol 10 mcg vaginal tablet 10 mcg VAGINAL 2XWK #8 tab 02/25/19 03/05/19 History ibuprofen 200 mg tablet 200 - 400 mg PO DIRECTED PRN 02/25/19 03/05/19 History tab mycophenolate mofetil 500 mg tablet 500 mg PO BID tab 02/25/19 03/05/19 History ondansetron HCl 4 mg tablet 4 mg PO DIRECTED PRN tab 02/25/19 03/05/19 History tacrolimus 0.1 % topical ointment 1 applic TOPICAL DIRECTED PRN 02/25/19 03/05/19 History #1 gm acyclovir 400 mg PO BID 03/05/19 03/05/19 History clobetasol 1 appln TOP BID 03/05/19 03/05/19 History hydroxyzine HCl 25 mg PO QID PRN 03/05/19 03/05/19 History Past Med/Surg History Medical History Asthma (Chronic) Hypertension (Chronic) Leukemia (Chronic) GERD (gastroesophageal reflux disease) Social History Preferred Language: Fijian Communication Ability: Effective [place] [employer] Required: No Beliefs That Will Affect Care: None Current Living Situation: Spouse Other Information That Helps Us Care for You: No Feels Safe at Home: Yes Safety Concerns: Feels Safe At This Time Smoking Status: Never smoker Hx Alcohol Use: Yes Hx Substance Use: No Review of Systems Review of Systems: All systems reviewed & are unremarkable except as noted in HPI & below Constitutional: no fever and no chills Respiratory: no cough and no dyspnea Cardiovascular: no chest pain Gastrointestinal: + abdominal pain, + nausea, + change in bowel habits and + constipation pain and nausea resolved at time of assessment Physical Exam Constitutional: WD/WN, vitals as above Eyes: PERRL, conjunctivae normal, anicteric sclerae ENMT: external ear and nose normal, oropharynx normal Neck: trachea midline, no thyromegaly Respiratory: normal respiratory effort, lungs clear to auscultation Cardiovascular: Rate/Rhythm: regular rate and regular rhythm Extremities: + pedal edema (trace-1+ bilaterally) Gastrointestinal (Abdomen): normal bowel sounds, soft, nontender, no hepatosplenomegaly Musculoskeletal: no cyanosis or clubbing, extremities motor strength 5/5 Skin: no rashes, warm and dry Neurologic: PERRL, EOMI, accommodation nl, no face palsy, no dysarthria Psychiatric: A+Ox3, euthymic affect Genitourinary: not examined Results & Data Vital Signs (Past 12 Hours) Vital Signs Temp Pulse Pulse Resp BP BP Pulse Ox 03/06/19 02:16 84 18 156/93 H 95 03/06/19 01:00 71 03/06/19 00:50 81 13 03/06/19 00:40 71 19 92 03/06/19 00:30 71 18 03/06/19 00:22 74 15 03/06/19 00:10 74 19 03/06/19 00:00 74 19 164/80 H 94 03/05/19 23:50 73 20 95 03/05/19 23:40 75 20 95 03/05/19 23:34 69 18 178/77 H 95 03/05/19 23:20 91 03/05/19 23:10 59 L 18 94 03/05/19 23:04 66 20 177/92 H 91 03/05/19 22:41 63 99 03/05/19 22:39 97.7 F 61 18 196/76 H 99 03/05/19 21:04 98.1 F 81 18 185/88 H 98 Laboratory Results 03/06/19 03/05/19 03/05/19 Range/Units 00:20 21:50 21:50 WBC 20.88 H (4.8-10.8) K/uL RBC 5.24 (4.2-5.4) M/uL Hgb 16.4 H (12.0-16.0) g/dL Hct 48.2 H (37-47) % MCV 92.0 (80-100) fL MCH 31.3 (25-34) pg MCHC 34.0 (32-36) g/dL RDW Std Deviation 48.2 H (36.4-46.3) fL RDW Coeff of Miguel 14.4 (11.5-14.5) % Plt Count 304 (130-400) K/uL MPV 9.0 (7.4-10.4) fL Immature Gran % (Auto) 0.4 % Neut % (Auto) 87.4 % Lymph % (Auto) 7.2 % [place] % (Auto) 4.9 % Eos % (Auto) 0.0 % Baso % (Auto) 0.1 % Immature Gran # (Auto) 0.09 H (0.00-0.02) K/uL Neut # (Auto) 18.22 H (1.4-6.5) K/uL Lymph # (Auto) 1.51 (1.2-3.4) K/uL [place] # (Auto) 1.02 H (0.11-0.59) K/uL Eos # (Auto) 0.01 (0-0.5) K/uL Baso # (Auto) 0.03 (0-0.2) K/uL Sodium 138 (136-145) mmol/L Potassium 3.6 (3.5-5.1) mmol/L Chloride 104 (98-107) mmol/L Carbon Dioxide 24 (21-32) mmol/L Anion Gap 10.0 (3-11) BUN 20 H (7-18) mg/dl Creatinine 1.34 H (0.6-1.2) mg/dl Est Cr Clr Drug Dosing 40.0 ml/min Est GFR ( Amer) 47.1 Est GFR (Non-Af Amer) 40.6 BUN/Creatinine Ratio 14.6 (10-20) Glucose 147 H (70-99) mg/dl Calcium 9.6 (8.5-10.1) mg/dl Total Bilirubin 0.5 (0.2-1) mg/dl AST 14 L (15-37) U/L ALT 21 (12-78) U/L Alkaline Phosphatase 117 (45-117) U/L Total Protein 8.0 (6.4-8.2) gm/dl Albumin 4.1 (3.4-5.0) gm/dl Globulin 3.9 (2.5-4.0) gm/dl Albumin/Globulin Ratio 1.1 (0.9-2) Lipase 114 (73-393) U/L Urine Color Yellow Urine Appearance Clear (Clear) Urine pH 5.5 (4.5-7.5) Ur Specific [place] 1.040 H (1.000-1.030) Urine Protein Negative (Negative) Urine Glucose (UA) Negative (Negative) Urine Ketones Negative (Negative) Urine Blood Negative (Negative) Urine Nitrite Negative (Negative) Urine Bilirubin Negative (Negative) Urine Urobilinogen Negative (Negative) Ur Leukocyte Esterase Negative (Negative) Code Status & VTE Plan Code Status full VTE Prophylaxis Plan VTE Prophylaxis will be ordered: Yes Supervising Physician Co-Signing Physician Notes Attending addendum: I have physically seen this patient, have supervised the medical residents activities, and agree with the H&P unless as otherwise noted. Assessment and Plan: Stercoral colitis/fecal impaction- Emergency department tried several methods with early results. Continue with MiraLAX and Colace. Add lactulose 30 g p.o. 3 times daily. Needs to increase her overall water intake as an outpatient. NSS on 25 mL's per hour. History of stem cell transplant/immunocompromised- Would minimize direct rectal stimulation, and primarily use oral remedies at this point. Remaining orders and notations as noted. PG Care Time/CCT Total # of Minutes Spent Total Time Spent with Patient: Total time spent is greater than 50% in coordination of care (as documented) at patient's floor/unit and/or counseling patient: Resident Activity Tracking Resident Involvement: Resident Care Provided Care Provided: Adult [facility] Medicine
[2019-03-06] MEDS ORDERED: ONDANSETRON INJ 2 MG/ML 2 ML VIAL IV PRN (03:44)
[2019-03-06] MEDS ORDERED: MAGNESIUM HYDROXIDE SUSP 30 ML UDC PO PRN (03:44)
[2019-03-06] MEDS ORDERED: ALUMINUM/MAGNESIUM SUSP 30 ML UDC PO PRN (03:44)
[2019-03-06] MEDS: SODIUM CHLORIDE 0.9% 1000ML 1,000 ML IV SCH ×3 (03:59→20:54)
[2019-03-06] MEDS: METOPROLOL SUCC 50MG EXT REL TAB PO STA ×2 (04:05→04:07)
--- NOTE | 2019-03-06 06:37 | CT Scan Report ---
CT abd pelvis oral and IV con CLINICAL HISTORY: Diffuse abdominal pain COMPARISON STUDY: December 10, 2017 TECHNIQUE: The patient was scanned in the dynamic helical fashion during intravenous administration o f 92 cc Optiray 320 A dose lowering technique was utilized adhering to the principles of ALARA. CT DOSE: There are basilar atelectatic changes. FINDINGS: Lower chest: The heart is normal in size and configuration, without pericardial effusion. The lung ba ses and pleural spaces are clear. Liver: The contrast-enhanced liver is normal in size, contour, and attenuation. There is no intrahepa tic biliary ductal dilatation. The hepatic veins and portal veins are patent. Gallbladder: Surgically absent Spleen: Normal in size and attenuation. Pancreas: Unremarkable. Adrenal glands: Unremarkable. Kidneys: There are subcentimeter renal hypodensities consistent with cysts. There is a 4 mm enhancing nodule within the right renal pelvis versus early contrast excretion. If this patient has hematuria, a dedicated three-phase renal CT scan should be considered in follow-up. Bowel: There are no transition zones indicate bowel obstruction. The appendix appears normal. There i s no acute diverticulitis. There is perirectal soft tissue edema. Peritoneum: There is no intraperitoneal free air or abdominal ascites. There are small fat-containing ventral and umbilical hernias. There is a small fat-containing right inguinal hernia Vasculature: The abdominal aorta is normal in course and caliber. Adenopathy: There are nonpathologically enlarged right ileocolic and pericecal lymph nodes. Pelvic viscera: The bladder, and pelvic viscera are unremarkable. Skeletal structures: No destructive osseous lesions are seen. IMPRESSION: 1. No evidence of bowel obstruction. No evidence of free air 2. No evidence of acute appendicitis. No evidence of acute diverticulitis 3. Mild fecal retention 4. Nonspecific infiltration of the perirectal space. An infectious colitis or stercoral colitis canno t be excluded 5. 4 mm enhancing nodule within the right renal pelvis versus early contrast excretion. If this patie nt has hematuria, a dedicated three-phase renal CT scan should be considered in follow-up Electronically signed by: Vinicius Stahl M.D. 03/06/2019 6:36 AM
[2019-03-06] MEDS: CLOBETASOL PROPIONATE 0.05% OINT 15 GM TUBE EXT SCH ×2 (08:13→20:48)
[2019-03-06] MEDS: LACTULOSE SYRUP 20 GM/30 ML UDC PO SCH ×3 (08:17→20:50)
[2019-03-06] MEDS: MYCOPHENOLATE MOFETIL 250 MG CAP PO SCH ×2 (08:17→20:57)
[2019-03-06] MEDS: DOCUSATE SODIUM SYRUP 100 MG/10 ML UDC PO SCH (08:18)
[2019-03-06] MEDS: METOPROLOL SUCC 50MG EXT REL TAB PO SCH ×2 (08:18→20:50)
[2019-03-06] MEDS: PANTOprazole 40 MG TAB PO SCH (08:18)
[2019-03-06] MEDS: LOSARTAN POTASSIUM 25 MG TAB PO SCH (08:18)
[2019-03-06] MEDS: ACYCLOVIR 200 MG CAP PO SCH ×2 (08:18→20:46)
[2019-03-06] MEDS: POLYETHYLENE (MIRALAX) 17 GM PACK PO SCH (08:18)
[2019-03-06] MEDS ORDERED: DOCUSATE SODIUM 50 MG PO SCH (09:00)
[2019-03-06] MEDS ORDERED: NON-FORMULARY MEDICATION (Clobetasol 1 APPLN) TOP SCH (09:00)
[2019-03-06] MEDS ORDERED: PANTOprazole 40 MG TAB PO SCH (09:00)
[2019-03-06 09:08] LABS: Basophils # (auto) 0.05 K/uL (0-0.2); Basophils % (auto) 0.3 %; Eosinophils # (auto) 0.06 K/uL (0-0.5); Eosinophils % (auto) 0.4 %; Hematocrit (blood only) 44.6 % (37-47); Immature Granulocytes # (auto) 0.04 K/uL (0.00-0.02); Immature Granulocytes % (auto) 0.3 %; Lymphocytes # (auto) 3.25 K/uL (1.2-3.4); Lymphocytes % (auto) 21.5 %; Mean Corpuscular Hemoglobin 31.3 pg (25-34); Mean Corpuscular Hgb Conc 33.6 g/dL (32-36); Mean Corpuscular Volume 92.9 fL (80-100); Mean Platelet Volume 8.7 fL (7.4-10.4); Monocytes # (auto) 1.26 K/uL (0.11-0.59); Monocytes % (auto) 8.3 %; Neutrophils # (auto) 10.45 K/uL (1.4-6.5); Neutrophils % (auto) 69.2 %; Platelet Count 278 K/uL (130-400); RDW Coefficient of Variation 14.6 % (11.5-14.5); RDW Standard Deviation 48.5 fL (36.4-46.3); White Blood Count 15.11 K/uL (4.8-10.8)
[2019-03-06 09:55] LABS: BUN Creatinine Ratio 13.9 (10-20); Creatinine Clr Calc Pharmacy 42.2 ml/min; Est GFR (African American) 50.2; Est GFR (Non-African American) 43.3; Potassium 3.7 mmol/L (3.5-5.1)
[2019-03-06] MEDS: ACETAMINOPHEN 325 MG TAB PO PRN ×3 (10:38→22:34)
[2019-03-06] MEDS ORDERED: DICYCLOMINE HCL 10 MG CAP PO ONE (14:05)
--- NOTE | 2019-03-06 19:55 | History & Physical Bridge Note ---
Date of Service March 06, 2019 History & Physical Bridge Note I have examined the patient, reviewed the History & Physical and in the interval since the performance of the History & Physical I have noted the following changes of clinical significance: patient was able to have several BM this afternoon, some liquid and solid components, no blood c/o severe rectal spasms afterwards she is really hungry provided with diet and some Bentyl to see if it helps spasms try to d/c to home tomorrow
[2019-03-06] MEDS ORDERED: ATORVASTATIN 10 MG TAB PO SCH (21:00)
[2019-03-07] MEDS: SODIUM CHLORIDE 0.9% 1000ML 1,000 ML IV SCH (04:59)
[2019-03-07] MEDS: ACETAMINOPHEN 325 MG TAB PO PRN (05:01)
[2019-03-07] MEDS: METOPROLOL SUCC 50MG EXT REL TAB PO SCH (08:27)
[2019-03-07] MEDS: PANTOprazole 40 MG TAB PO SCH (08:27)
[2019-03-07] MEDS: DOCUSATE SODIUM SYRUP 100 MG/10 ML UDC PO SCH (08:28)
[2019-03-07] MEDS: LACTULOSE SYRUP 20 GM/30 ML UDC PO SCH (08:28)
[2019-03-07] MEDS: MYCOPHENOLATE MOFETIL 250 MG CAP PO SCH (08:28)
[2019-03-07] MEDS: LOSARTAN POTASSIUM 25 MG TAB PO SCH (08:28)
[2019-03-07] MEDS: CLOBETASOL PROPIONATE 0.05% OINT 15 GM TUBE EXT SCH (08:29)
[2019-03-07] MEDS: POLYETHYLENE (MIRALAX) 17 GM PACK PO SCH (08:29)
[2019-03-07] MEDS: ACYCLOVIR 200 MG CAP PO SCH (08:29)
--- NOTE | 2019-03-07 10:52 | Discharge Summary ---
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 She notes that she typically has BMs every 2 days, and has not had one for 5-6 days now. Typically uses colace daily. Was not concerned about not having BM until today when she developed acute abdominal pain from the constipation. She then took a suppository, fleet enema, and liquid suppository in addition to miralax, which did not help relieve symptoms. In the ER, she was given magnesium citrate, soap suds enema, mineral oil enema, milk and molasses enema with minimal stool output. These measures did help to alleviate some symptoms, but she did not feel comfortable going home with the amount of stool still retained. She reports a h/o hemorrhoids but denies any [place] bleeding at this time. Initial labs were significant for a leukocytosis of 20,000 and a Creatinine of 1.3, which is her baseline. UA was negative and CT abdo statrad read was significant for moderate stool burden and ?stercolitis. Principal Diagnosis Fecal impaction Discharge Exam Constitutional WD/WN, vitals as above Eyes PERRL, conjunctivae normal, anicteric sclerae ENMT external ear and nose normal, oropharynx normal Neck trachea midline, no thyromegaly Respiratory normal respiratory effort, lungs clear to auscultation Cardiovascular RRR, no murmur, no edema Gastrointestinal (Abdomen) normal bowel sounds, soft, nontender, no hepatosplenomegaly Musculoskeletal no cyanosis or clubbing, extremities motor strength 5/5 Skin no rashes, warm and dry Neurologic patellar DTR's 2+ bilat, sensation intact and PERRL, EOMI, accommodation nl, no face palsy, no dysarthria Psychiatric A+Ox3, euthymic affect Lymphatic no cervical or axillary lymphadenopathy Discharge Data Allergies Allergy/AdvReac Type Severity Reaction Status Date / Time Sulfa (Sulfonamide Allergy Severe RASH Verified 03/05/19 21:42 Antibiotics) lisinopril AdvReac Mild coughing Verified 03/05/19 21:42 Consultations 03/06/19 02:11 ED Decision to Admit Stat Ordered Studies 03/05/19 21:17 CT abd pelvis oral and IV con Stat Hospital Course (1) Fecal impaction in rectum: resolved with aggressive laxative therapy with Miralax and Lactulose required enema moved bowels several times, pain resolved instructions provided on how to keep bowels regular and prevent impaction Colace, Miralax, use suppository PRN stay well hydrated stay active (2) 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: (3) History of stem cell transplant: (4) Asthma: (5) Hypertension: (6) GERD (gastroesophageal reflux disease): Total Time Total Time Spent Total Time Spent (In Minutes): 20 minutes Total Time Includes: Examination of the Patient, Discharge Planning and Medication Reconciliation Discharge Plan Discharge Items Patient Disposition: Home - Self-Care Reason For Visit: STERCOLITIS Discharge Diagnosis: Fecal impaction Constipation Condition on Discharge: Good Health Concerns: no concerns Goals: bowel regimen, add Miralax to keep regular Activity: Resume your previous activity Non-emergency contact: Primary Care Provider Call non-emergency contact if: you have any medication questions, your symptoms worsen and you have a fever Follow-up/Referrals: Sherry Blanc MD [Primary Care Provider] - 03/12/19 2:30 pm (Please, follow up at Dr. Sherry Blanc' office with her associate, Shannon Ceballos PA-C, on March 12 at 2:30 pm. *If you need to change this appointment, call the office at [phone].) Diet: Heart Healthy Addtl Attending Provider Instructions: Medications: - MIRALAX: recommend that you use daily or every other day to help keep stools regular Fecal impaction, constipation resolved with aggressive laxatives and enema, suppository plan to prevent constipation and impaction from recurring: stay well hydrated, drink at least 40-50oz of fluids a day make sure you drink 8oz of fluid with colace, could consider increasing dose to 100mg twice a day use fiber supplement once daily (ie Metamucil or another OTC supplement) use Miralax daily or every other day, if stools are loose try every third day just to keep bowels moving use Dulcolax suppository OTC if no BM in two days Pending Studies at Discharge: No Stand-Alone Forms: [facility] Medications and DC Order Prescriptions: Continued atorvastatin 10 mg tablet 10 mg PO HS RF: 0 metoprolol succinate 50 mg tablet extended release 24 hr 50 mg PO BID RF: 0 docusate sodium [Colace Clear] 50 mg capsule 50 mg PO DAILY RF: 0 pantoprazole [Protonix] 20 mg tablet,delayed release (DR/EC) 20 mg PO DAILY RF: 0 losartan 25 mg tablet 25 mg PO DAILY RF: 0 albuterol sulfate [Ventolin HFA] 90 mcg/actuation HFA aerosol inhaler 1 puffs INH Q6H PRN (Reason: Shortness Of Breath Or Wheezing) RF: 0 fluticasone propionate 50 mcg/actuation spray,suspension 1 sprays INTNAS DAILY RF: 0 ondansetron HCl 4 mg tablet 4 mg PO DIRECTED PRN (Reason: Nausea And Vomiting) RF: 0 ibuprofen 200 mg tablet 200 - 400 mg PO DIRECTED PRN (Reason: Pain) RF: 0 tacrolimus 0.1 % ointment 1 applic topical DIRECTED PRN (Reason: Skin Irritation) Qty: 1 RF: 0 estradiol 10 mcg tablet 10 mcg vaginal 2XWK Qty: 8 RF: 0 mycophenolate mofetil 500 mg tablet 500 mg PO BID RF: 0 hydroxyzine HCl 25 mg tablet 25 mg PO QID PRN (Reason: Itching) RF: 0 acyclovir 200 mg capsule 400 mg PO BID RF: 0 clobetasol 0.05 % ointment 1 appln TOP BID RF: 0 Discharge Orders: Discharge Order (Routine); Ordered 03/07/19 Ordered By: Dwayne Song Admission Data Admit Date/Time: 03/06/19 03:08 Attending Provider: Dwayne Song Admit Provider: Judi Llamas Primary Care Provider: Sherry Blanc Other Providers: Eliezer Garcia
== END 2019-03-07 13:17 | disposition home or self-care (01) ==
LOC: ED 21:02 → 2W 21:02 → SUATTDRO 03-06 03:08 → 2W 03-06 03:30